=== PATIENT | female | born 1970 ===

== ENCOUNTER 2019-11-28 09:57 | Outpatient (CLI) | payer OTHER | END 2019-11-28 10:16 | disposition home or self-care (01) | LOC: LAB 09:57 | DX: M85.88 Other specified disorders of bone density and structure, other site (principal); E21.2 Other hyperparathyroidism; E88.89 Other specified metabolic disorders; E55.9 Vitamin D deficiency, unspecified; M81.8 Other osteoporosis without current pathological fracture; E56.1 Deficiency of vitamin K ==

== ENCOUNTER → 2019-11-28 | Outpatient (CLI) | payer OTHER | END | disposition home or self-care (01) | LOC: NUCLEAR 10:23 | DX: M81.0 Age-related osteoporosis without current pathological fracture (principal); E55.9 Vitamin D deficiency, unspecified ==

== ENCOUNTER 2023-03-08 09:07 | Outpatient (CLI) | payer OTHER | END 2023-03-08 09:11 | disposition home or self-care (01) | LOC: SONOGRAMA 09:07 | PROVIDERS: ATTEND Pathology Anatomic Pathology & Clinical Pathology | DX: D34 Benign neoplasm of thyroid gland (principal); E04.9 Nontoxic goiter, unspecified ==